=== PATIENT | female | born 1965 | race Caucasian/White ===

== ENCOUNTER 2019-06-09 17:32 | Emergency (ER) | payer OTHER ==
[~2019-06-09] VITALS: Ht 160 cm; Wt 79.4 kg
[2019-06-09 17:52] VITALS: BP 155/84
[2019-06-09] MEDS ORDERED: ZESTRIL10 MG PO (17:54)
[2019-06-09] MEDS ORDERED: VITAMIN D250000 UNIT PO (17:55)
[2019-06-09] MEDS ORDERED: SYNTHROID100 MC1 PO (17:55)
[2019-06-09] MEDS ORDERED: ALLEGRA ALLERG180 MG PO (17:55)
[2019-06-09] MEDS ORDERED: LIPITOR 20 MG T20 M1 PO (17:56)
[2019-06-09] MEDS ORDERED: ASPIR 8181 M1 PO (17:56)
[2019-06-09] MEDS ORDERED: CENTANY30 GM TOP (19:09)
[2019-06-09] MEDS ORDERED: NORCO 5-325 TA1 EAC1 PO (19:09)
[2019-06-09] MEDS ORDERED: IBUPROFEN 800800 M1 PO (19:09)
== END 2019-06-09 19:13 | disposition home or self-care (01) ==
LOC: M.ERS 17:32
DX: S61.216A Laceration without foreign body of right little finger without damage to nail, initial encounter (principal); E03.9 Hypothyroidism, unspecified; I10 Essential (primary) hypertension; E78.5 Hyperlipidemia, unspecified; W26.8XXA Contact with other sharp object(s), not elsewhere classified, initial encounter; Y93.89 Activity, other specified; Y92.89 Other specified places as the place of occurrence of the external cause; Y99.8 Other external cause status